=== PATIENT | female | born 1980 | race American Indian/Alaskan Native ===

== ENCOUNTER 2018-01-18 11:50 | Emergency (ER) | payer OTHER ==
[2018-01-18 12:01] VITALS: BP 149/84
[2018-01-18] MEDS ORDERED: MOTRIN PO ONE (13:49)
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
--- NOTE | 2018-01-18 16:46 | XRay Report ---
FINAL REPORT EXAM: XR SPINE THORACIC 2V HISTORY: low back pain TECHNIQUE: 2 views of the thoracic spine PRIORS: None. FINDINGS: No evidence of compression fracture, spondylolisthesis, or disc flattening. No significant degenerative change. The included posterior ribs are intact. There is no focal osseous lesion. IMPRESSION: No evidence of acute skeletal pathology
--- NOTE | 2018-01-18 16:47 | XRay Report ---
FINAL REPORT EXAM: XR SPINE CERVICAL 2-3V HISTORY: neck pain TECHNIQUE: 3 views of the cervical spine PRIORS: None. FINDINGS: There is nonspecific straightening of the expected cervical lordosis with slight diffuse kyphosis. This may be secondary to patient posture or muscle spasm. There is no vertebral compression fracture or spondylolisthesis. The visualized prevertebral soft tissues are negative. Multilevel slight degenerative change. No definite disc narrowing. IMPRESSION: No acute skeletal pathology Findings may reflect muscle spasm and/or patient posture
== END 2018-01-18 16:54 | disposition home or self-care (01) ==
LOC: ED 11:50
DX: S13.4XXA Sprain of ligaments of cervical spine, initial encounter (principal); S39.012A Strain of muscle, fascia and tendon of lower back, initial encounter; I10 Essential (primary) hypertension; V49.49XA Driver injured in collision with other motor vehicles in traffic accident, initial encounter; Y93.89 Activity, other specified; Y92.89 Other specified places as the place of occurrence of the external cause; Y99.8 Other external cause status
CPT/HCPCS: 72040; 72070; 99283